=== PATIENT | male | born 1975 | race Caucasian/White ===

== ENCOUNTER 2023-08-02 10:33 | Emergency (ER) | payer MEDICAID ==
[~2023-08-02] VITALS: Ht 172.7 cm; Wt 80.3 kg
[2023-08-02] MEDS ORDERED: TDAP [DIPH/PERTUSSIS/TET] 0.5 ML VIAL IM ONE (11:32)
[2023-08-02] MEDS: TDAP [DIPH/PERTUSSIS/TET] 0.5 ML VIAL IM ONE (11:33)
[2023-08-02] MEDS ORDERED: CYCL10TA9 PO (12:11)
[2023-08-02] MEDS ORDERED: IBUP-1490 PO (12:11)
[2023-08-02 12:22] VITALS: BP 131/66; TEMP 98.4; O2SAT 100
== END 2023-08-02 12:31 | disposition home or self-care (01) ==
LOC: ER 10:40
DX: S20.212A Contusion of left front wall of thorax, initial encounter (principal); M79.672 Pain in left foot; Z60.2 Problems related to living alone; V59.49XA Driver of pick-up truck or van injured in collision with other motor vehicles in traffic accident, initial encounter; Y93.89 Activity, other specified; Y92.488 Other paved roadways as the place of occurrence of the external cause; Y99.8 Other external cause status
CPT/HCPCS: 99285; 71250; 90471; 90715; 73630; 71100; 74176; A6403